=== PATIENT | male | born 1980 | race Two or more races ===

== ENCOUNTER 2016-07-14 12:00 | Inpatient (IN) | payer BC, OTHER ==
[~2016-07-14] VITALS: Ht 167.6 cm; Wt 102.1 kg
[~2016-07-14 12:00] MED LIST: AMLO5TAB2 PO
[2016-07-14 12:47] LABS: Basophils # (auto) 0 uL; Basophils % (auto) 0.6 % (0.0-2.0); Eosinophils # (auto) 0.3 uL; Eosinophils % (auto) 4.1 % (0.0-7.0); Hematocrit 47.9 % (41.0-53.0); Hemoglobin 16.8 g/dL (13.5-17.5); Lymphocytes # (auto) 2.4 uL; Lymphocytes % (auto) 29.8 % (10.0-50.0); Mean Corpuscular Hemoglobin 30.5 pg (28.0-32.0); Mean Corpuscular Volume 87.4 fL (80.0-100.0); Mean Platelet Volume 8.2 fL (7.4-10.4); Monocytes # (auto) 0.7 uL; Monocytes % (auto) 8.9 % (0.0-12.0); Neutrophils # (auto) 4.5 uL; Neutrophils % (auto) 56.6 % (37.0-80.0); Platelet Count (auto) 269 10^3/uL (140-450); Red Cell Distribution Width 13.1 % (11.6-16.0); White Blood Cell 7.9 10^3/uL (4.4-10.8)
[2016-07-14 13:10] LABS: Albumin 3.7 g/dL (3.4-5.0); Alkaline Phosphatase 76 U/L (45-117); Anion Gap 9 (5-15); Aspartate Aminotransferase 42 U/L (15-37); BUN/Creatinine Ratio 12.2; Bilirubin, Total 0.5 mg/dL (0.2-1.0); Blood Urea Nitrogen 10 mg/dL (7-18); Calcium 8.6 mg/dL (8.5-10.1); Carbon Dioxide 27 mmol/L (21-32); Chloride 103 mmol/L (98-107); GFR African American 138 mL/min; GFR Non-African American 114 mL/min; Glucose 98 mg/dL (74-106); Magnesium 2.3 mg/dL (1.6-2.6); Potassium 3.4 mmol/L (3.5-5.1); Sodium 139 mmol/L (136-145)
[2016-07-14 16:37] LABS: INR 0.98 (0.9-1.15); Partial Thromboplastin Time 26.6 sec (22.64-33.71); Prothrombin Time 10.7 sec (9.37-12.3)
[2016-07-14 18:13] LABS: Urine RBC None Seen /hpf (0 - 3)
[2016-07-14] MEDS ORDERED: MORPHINE SULF INJ 2 MG/ML SYRINGE 1ML IV PRN ×2 (18:30)
[2016-07-14] MEDS ORDERED: ACETAMINOPHEN 500 MG TAB PO PRN (18:30)
[2016-07-14] MEDS ORDERED: LACTULOSE 20Gm/30ML SOLN PO PRN (18:30)
[2016-07-14] MEDS ORDERED: NITROGLYCERIN 0.4 MG SL TAB SL PRN (18:30)
[2016-07-14] MEDS ORDERED: TEMAZEPAM 15 MG CAP PO PRN (18:30)
[2016-07-14] MEDS ORDERED: PROMETHAZINE HCL 25 MG/ML 1ML IV PRN (18:30)
[2016-07-14] MEDS ORDERED: HYDROcodone-ACET 5/325MG TAB PO PRN (18:30)
[2016-07-14] MEDS ORDERED: LORazepam 0.5 MG TAB PO PRN (18:30)
[2016-07-14] MEDS: SODIUM CHLORIDE 0.9% 1,000 ML IV SCH (18:40)
[2016-07-14 18:44] LABS: Urine Bilirubin Negative (Negative); Urine Blood Negative /uL (Negative); Urine Color Yellow (Yellow); Urine Glucose Normal (Normal); Urine Ketone Negative (Negative); Urine Mucus FEW (None Seen); Urine Nitrite Negative (Negative); Urine Urobilinogen Normal (Negative); Urine pH 5.5 (5.0-8.0)
[2016-07-14] MEDS ORDERED: ASPirin 81 mg TAB PO ONE (18:45)
[2016-07-14 18:56] LABS: Cholesterol 150 mg/dL (< 200); HDL Cholesterol 56 mg/dL (40-59); LDL Cholesterol 89 mg/dL (< 100); Triglycerides 115 mg/dL (< 150)
[2016-07-14 19:24] LABS: Temperature: 23.5 C (20.0-25.0)
[2016-07-14] MEDS ORDERED: ATORVASTATIN 20 MG TAB PO SCH (22:00)
[2016-07-15] MEDS ORDERED: FURO20TA PO (03:55)
[2016-07-15] MEDS: SODIUM CHLORIDE 0.9% 1,000 ML IV SCH (04:08)
[2016-07-15 05:30] VITALS: BP 121/63
[2016-07-15 08:00] VITALS: BP 145/75
[2016-07-15 09:00] VITALS: BP 138/66
[2016-07-15 09:38] LABS: Cholesterol 123 mg/dL (< 200); HDL Cholesterol 49 mg/dL (40-59); LDL Cholesterol 77 mg/dL (< 100); Triglycerides 73 mg/dL (< 150)
[2016-07-15] MEDS ORDERED: amLODIPine BESYLATE 5 MG TAB PO SCH (10:00)
[2016-07-15] MEDS ORDERED: ASPirin 81 mg TAB PO SCH (10:00)
[2016-07-15 13:00] VITALS: BP 143/80
[2016-07-15 17:00] VITALS: BP 145/75
== END 2016-07-15 21:40 | disposition left against medical advice (07) | DRG 69 ==
LOC: ER 12:00 → TELE 12:01 → TELE-CENTR 07-15 03:01
PROVIDERS: ADMIT Internal Medicine; ATTEND Internal Medicine Pulmonary Disease
DX: G45.9 Transient cerebral ischemic attack, unspecified (principal); I10 Essential (primary) hypertension; E78.5 Hyperlipidemia, unspecified; E87.6 Hypokalemia; E66.9 Obesity, unspecified; Z83.3 Family history of diabetes mellitus; Z82.49 Family history of ischemic heart disease and other diseases of the circulatory system; Z82.3 Family history of stroke; Z79.82 Long term (current) use of aspirin; Z79.899 Other long term (current) drug therapy; Z68.36 Body mass index [BMI] 36.0-36.9, adult; Z80.9 Family history of malignant neoplasm, unspecified; Z84.89 Family history of other specified conditions
CPT/HCPCS: 36415; 70450; 71010; 76705; 80053; 80061; 81001; 82550; 82607; 82746; 82962; 83735; 84443; 84484; 85025; 85610; 85652; 85730; 93005; 93306; 93886; 94761

== ENCOUNTER 2019-01-08 06:12 | Emergency (ER) | payer BC, MEDICAID ==
[~2019-01-08] VITALS: Ht 167.6 cm; Wt 83.5 kg
[~2019-01-08 06:12] MED LIST changes: +AMLO5TAB15 PO; -AMLO5TAB2 PO; +FURO1TAB33 PO
[2019-01-08] MEDS ORDERED: HYDR25TA4 PO (06:28)
[2019-01-08] MEDS ORDERED: SIMV10TA84 PO (06:28)
[2019-01-08] MEDS ORDERED: cloNIDine HCL 0.1 MG TAB PO ONE ×2 (06:30→08:30)
[2019-01-08 06:50] LABS: Basophils # (auto) 0.1 uL; Basophils % (auto) 1.2 % (0.0-2.0); Eosinophils # (auto) 0.5 uL; Eosinophils % (auto) 6.5 % (0.0-7.0); Hematocrit 45.3 % (41.0-53.0); Hemoglobin 16.2 g/dL (13.5-17.5); Lymphocytes # (auto) 2.2 uL; Lymphocytes % (auto) 29.7 % (10.0-50.0); Mean Corpuscular Hemoglobin 30.8 pg (28.0-32.0); Mean Corpuscular Hgb Conc. 35.8 g/dL (32.0-36.0); Mean Corpuscular Volume 86.1 fL (80.0-100.0); Monocytes # (auto) 0.6 uL; Monocytes % (auto) 7.9 % (0.0-12.0); Neutrophils % (auto) 54.7 % (37.0-80.0); Nucleated Red Blood Cells % 0.1 %; Platelet Count (auto) 228 10^3/uL (140-450); Red Blood Cells 5.26 10^6/uL (4.5-5.90); Red Cell Distribution Width 13.1 % (11.8-14.3); White Blood Cell 7.3 10^3/uL (4.4-10.8)
[2019-01-08 07:02] LABS: Alanine Aminotransferase 26 U/L (16-61); Albumin 3.3 g/dL (3.4-5.0); Anion Gap 5 (5-15); Aspartate Aminotransferase 14 U/L (15-37); BUN/Creatinine Ratio 13.9; Blood Urea Nitrogen 11 mg/dL (7-18); Carbon Dioxide 28 mmol/L (21-32); Chloride 106 mmol/L (98-107); GFR African American 142 mL/min; GFR Non-African American 117 mL/min; Glucose 69 mg/dL (74-106); Potassium 3.6 mmol/L (3.5-5.1); Sodium 139 mmol/L (136-145)
[2019-01-08 07:07] LABS: Alkaline Phosphatase 73 U/L (45-117); Bilirubin, Total 0.4 mg/dL (0.2-1.0); Total Protein 7.2 g/dL (6.4-8.2)
[2019-01-08] MEDS: TETANUS-DIPTH-ACEL PERTUSSIS 0.5ML SYRG IM ONE ×2 (07:28→07:30)
[2019-01-08 08:56] VITALS: BP 147/99
== END 2019-01-08 09:01 | disposition home or self-care (01) ==
LOC: ER 06:12
DX: L03.032 Cellulitis of left toe (principal); E44.1 Mild protein-calorie malnutrition; E78.5 Hyperlipidemia, unspecified; I10 Essential (primary) hypertension; Z68.29 Body mass index [BMI] 29.0-29.9, adult
CPT/HCPCS: 36415; 71045; 73700; 80053; 84484; 85025; 90471; 90715; 93005